=== PATIENT | female | born 1990 | race Caucasian/White ===

== ENCOUNTER → 2018-11-07 14:34 | Outpatient (CLI) | payer OTHER, SELFPAY ==
[2018-11-08 10:04] LABS: Strep Grp B PCR NEG for Grp B Strep
== END ==
PROVIDERS: Family Provider Family Medicine; PCP Family Medicine
DX: Z34.83 Encounter for supervision of other normal pregnancy, third trimester (principal)
CPT/HCPCS: 87653

== ENCOUNTER 2018-12-08 17:53 | Inpatient (IN) | payer OTHER, SELFPAY ==
[2018-12-08] MEDS: miSOPROStol 25 MCG TABLET VAG (20:13)
[2018-12-08 20:23] VITALS: BP 120/50
[2018-12-08 20:25] LABS: Add Manual Diff / Slide Review NO; Basophils Absolute Auto 100 /uL (0-100); Basophils Percent Auto 0.9 % (0-2); Eosinophils Absolute Auto 100 /uL (0-450); Eosinophils Percent Auto 0.5 % (2-4); Hematocrit 36.4 % (36-46); Hemoglobin 12.2 g/dL (12.0-16.0); Lymphocytes Absolute Auto 2500 /uL (1100-4500); Lymphocytes Percent Auto 18.6 % (25-40); Mean Corpuscular HGB Conc 33.5 % (30-36); Mean Corpuscular Hemoglobin 27.4 PG (26-34); Mean Corpuscular Volume 81.9 fL (80-100); Monocytes Absolute Auto 1000 /uL (0-900); Monocytes Percent Auto 7.8 % (3-14); Neutrophils Absolute Auto 9700 /uL (1500-7000); Neutrophils Percent Auto 72.2 % (50-75); Platelet Count 330 X10^3/uL (150-400); Red Blood Cell Count 4.44 X10^6/uL (4.0-5.2); Red Cell Distribution Width 14.6 % (11.6-14.8); White Blood Cell Count 13.4 X10^3/uL (4.5-11.0)
[2018-12-09] MEDS: miSOPROStol 25 MCG TABLET VAG (00:09)
[2018-12-09] MEDS: METFORMIN XR 500 MG TABLET 1000 MG PO (01:24)
[2018-12-09] MEDS: ZOLPIDEM 5 MG TABLET PO (01:27)
[2018-12-09] MEDS: LACTATED RINGERS 1,000 ML 100 ML IV ×2 (07:02→12:30)
[2018-12-09] MEDS: OXYTOCIN PREMIX 30 UNIT/500 ML PLAST..BAG IV (07:03)
--- NOTE | 2018-12-09 08:35 | P.HPOB_ITS ---
OB HPI Date/Time Date of admission: 12/09/18 Date Patient Seen: 12/09/18 Time Patient Seen: 08:35 History of Present Condition Chief complaint: LABOR : 3 Para: 2 Estimated Date of Delivery: 12/08/18 Estimated Gestational Age (weeks): 40 Narrative: Jeanna Sylvester is a 28 year old female three para two with a late transfer to our clinic from the [facility]. The patient is a gestational diabetic controlled on metformin. Her fastings have been below 90. Her 1 hours have been below 120. The patient is admitted at term for induction because of her diabetes Indications Indication for induction OB: medical complication History of Present care: good care, initiated at week # (11), number of visits (13) and pounds weight gain (16) Dating criteria: LMP confirmed by 2nd trimester US Ultrasounds: normal 1st trimester US and normal mid trimester US Obstetrical complications: gestational diabetes Preadmission Labs Blood type: O (+) positive -: Antibody screen: negative, Cystic fibrosis screen: unknown, GBS status: negative, HBsAG: negative, HIV: negative, HSV 1: negative, HSV 2: negative and RPR/VDLR: negative -: Chlamydia screen: detected (Negative) and Gonorrhea screen: detected (Negative) -: Rubella: immune and Varicella: immune HCT: 38 HCAB: negative PAP: Normal Sequential screen: Negative Quad screen: Normal 1 hr GTT: 139 Evaluation Evaluation Laboratory results: Laboratory Tests 12/08/18 12/08/18 19:00 19:00 WBC 13.4 H RBC 4.44 Hgb 12.2 Hct 36.4 MCV 81.9 MCH 27.4 MCHC 33.5 RDW 14.6 Plt Count 330 Neut % (Auto) 72.2 Lymph % (Auto) 18.6 L [place] % (Auto) 7.8 Eos % (Auto) 0.5 L Baso % (Auto) 0.9 Neut # (Auto) 9700 H Lymph # (Auto) 2500 [place] # (Auto) 1000 H Eos # (Auto) 100 Baso # (Auto) 100 Blood Type O Positive Antibody Screen Negative [facility] Social History Smoking Status: Never smoker Social History Smoking Status: Never smoker Meds Home Medications and Allergies Home Medications Medication Instructions Recorded Confirmed Type metformin 1,000 mg PO BID 12/08/18 12/08/18 History Allergies Allergy/AdvReac Type Severity Reaction Status Date / Time No Known Drug Allergies Allergy Unknown Verified 12/08/18 20:21 Review of Systems Review of Systems ROS Unobtainable: All systems reviewed & are unremarkable except as noted in HPI and below Exam Const General: cooperative and healthy appearing [facility] Head: normal to inspection Ears: hearing grossly normal bilaterally Nose: external nose normal Face and sinus: normal facial exam Mouth: oral mucosae normal, lip normal, tongue normal and moist mucous membranes Teeth and gingiva: dentition normal Throat: posterior oropharynx normal Eyes General: appearance normal, both eyes and all related structures Neck Neck: normal visual inspection and full ROM Chest Chest: normal inspection of the chest and normal palpation of entire chest wall Breast inspection: normal inspection of the breasts and normal inspection of the axillae Breast Palpation: normal palpation of the breasts and normal palpation of the axillae Resp Effort & Inspection: normal respiratory effort Auscultation: clear to auscultation bilaterally Cardio Palpation: normal PMI Rate: regular rate Rhythm: regular rhythm Heart Sounds: S1 normal and S2 normal GI Inspection: normal to inspection Palpation: soft and no hepatosplenomegaly Percussion: normal to percussion Auscultation: normal bowel sounds Bimanual Exam- Vagina & Uterus: uterine mobility normal OB/External & Speculum: external exam normal Manual OB Exam: dilated 4, effaced 75% and station -2 Uterus Location (Fundal Height): 42 Presentation: vertex Estimated Weight (lbs): 8 Amniotic Fluid: clear Back/Spine/Pelvis Thoracic/Lumbar Spine: thoracic and lumbar spine normal to inspection Skin General: no rashes or lesions noted Neuro General: alert, oriented x3, tone normal and moves all extremities Cognition: normal cognition Speech: speech normal Gait: normal gait Motor: muscle tone normal throughout Sensory Exam: no sensory deficits noted Extrem General: normal to inspection and normal exam except as noted Psych Appearance: grossly normal and well kempt Mental Status: mental status grossly normal Speech and Movement: speech and movement normal Objective Labs Result Diagrams: 12/08/18 19:00 Labs: Laboratory Results - last 24 hr 12/08/18 12/08/18 19:00 19:00 WBC 13.4 H RBC 4.44 Hgb 12.2 Hct 36.4 MCV 81.9 MCH 27.4 MCHC 33.5 RDW 14.6 Plt Count 330 Neut % (Auto) 72.2 Lymph % (Auto) 18.6 L [place] % (Auto) 7.8 Eos % (Auto) 0.5 L Baso % (Auto) 0.9 Neut # (Auto) 9700 H Lymph # (Auto) 2500 [place] # (Auto) 1000 H Eos # (Auto) 100 Baso # (Auto) 100 Blood Type O Positive Antibody Screen Negative Assessment and Plan Assessment and Plan Assessment and Plan narrative: Term intrauterine Gestational diabetes Induction of labor
[2018-12-09] MEDS: FENT 2MCG/ML BUPIV 0.125% EPI 200 MCG/100 ML PLAST..BAG 5 MCG EPIDURAL (11:15)
--- NOTE | 2018-12-09 13:09 | P.PCNOB_ITS ---
Labor & Delivery Delivery date: 12/09/18 Intrapartal events: None Cervical ripening method: per misoprostal protocol Induction method: per pitocin protocol Delivery augmentation: rupture of membranes Delivery monitor: external FHT and external uterine Route of delivery: L&D Laceration Description: None Anesthesia type: Epidural Complications: None Narrative: Patient is a 28-year-old three para two admitted at term because of gestational diabetes for induction of labor. Patient received misoprostol cervical ripening and then Pitocin. She had a rapid labor and spontaneous vaginal delivery of a live-born male infant with scores of nine at 1 minutes and nine at 5 minutes in good condition. Placenta delivered spontaneously. Cord had three vessels. The estimated blood loss was 250 cc. There were no cervical vaginal or perineal lacerations. Plan for aftercare: Routine
[2018-12-09] MEDS: IBUPROFEN 600 MG TABLET PO ×2 (16:22→22:56)
[2018-12-10 06:22] LABS: Hematocrit 30.7 % (36-46); Hemoglobin 10.4 g/dL (12.0-16.0)
--- NOTE | 2018-12-10 07:49 | P.DS_ITS ---
Discharge Providers Provider Date of admission: 12/08/18 17:53 Discharge Date: 12/10/18 Primary care physician: Summer Carreon MD Consults: 12/09/18 13:13 Consult to Audit Associate Routine Comment: Discharge provider: Jared Carter MD Summary Hospital Course Date Patient Seen: 12/10/18 Time Patient Seen: 07:49 Hospital Course: The patient is a 28 year three para two who was admitted for elective induction on the basis of being term and a gestational diabetic. Misoprostol cervical ripening was used. Membranes are rupture andd and Pitocin was begun. Patient had a rapid labor and spontaneous delivery of a 9 lb male with scores of nine at 1 minutes and nine at 5 minutes in good condition. Placenta delivered spontaneously. Cord had three vessels. The estimated blood loss 250 cc. There were no perineal cervical or vaginal lacerations. Post delivery the patient is done well. She remains afebrile stable vital signs she has been progressivelya;limented and ambulated. She is voiding a good volumes. She will be discharged home for follow-up in four weeks Peripartum Data Delivery Method: Natural Vaginal Laceration description: None complications: none Status at Discharge Cognitive/behavioral status at discharge: oriented Functional status at discharge: independent ambulation Overall status at discharge: patient is progressing back to baseline Time Spent with Patient Time attestation: Total time spent providing and/or coordinating discharge services: Time spent: Less than 30 minutes Objective Labs Result Diagrams: 12/10/18 06:05 Labs: Laboratory Results - last 24 hr 12/10/18 06:05 Hgb 10.4 L Hct 30.7 L Exam Narrative Exam Narrative: Fundus U minus two Lochia scant No perineal concerned Discharge Plan Discharge Plan Patient Disposition: Home Discharge Med Rec/Prescriptions Prescriptions: New Dermoplast (with menthol) 20-0.5 % Aerosol 1 spray topical Q1HR PRN (Reason: perineal pain) Qty: 1 RF: 0 oxycodone-acetaminophen 5-325 mg Tablet 2 tab PO Q4HR Qty: 10 RF: 0 ibuprofen 600 mg Tablet 600 mg PO Q6HR PRN (Reason: Pain, Mild (1-3)) Qty: 16 RF: 0 docusate sodium 250 mg Capsule 250 mg PO DAILY Qty: 14 RF: 0 Xwc-G-Knfehw Cream 1 applic topical PRN PRN (Reason: Tenderness) Qty: 1 RF: 0 ferrous gluconate 324 mg (38 mg iron) Tablet 324 mg PO DAILY Qty: 30 RF: 0 Prenatabs Rx 29 mg iron- 1 mg Tablet 1 tab PO DAILY Qty: 30 RF: 0 Discontinued metformin 1,000 mg Tablet 1,000 mg PO BID RF: 0 Follow up/Referrals: Summer Carreon MD [Primary Care Provider] - Jared Carter MD [Physician] - 1 Month Provider Discharge Instructions Diet: Diet as Tolerated Activity: up ad mauricio may shower Skin/Wound/Dressing Care Report to your healthcare provider any signs of infection, such as:: chills, fever, increased pain, unusual drainage and unusual redness Discharge Data Primary Care Provider: Summer Carreon
[2018-12-10] MEDS: PRENATAL VIT,CALC/IRON/FOLIC 1 TABLET 1 TAB PO (10:07)
[2018-12-10] MEDS: FERROUS GLUCONATE 324 MG TABLET PO (10:07)
[2018-12-10] MEDS: DOCUSATE 250 MG CAPSULE PO (10:07)
[2018-12-10 10:52] VITALS: BP 114/73; PULSE 74; RESP 16; TEMP 36.3
== END 2018-12-10 13:30 | disposition home or self-care (01) | DRG 806 ==
PROVIDERS: Family Provider Family Medicine; PCP Family Medicine
DX: O24.425 Gestational diabetes mellitus in childbirth, controlled by oral hypoglycemic drugs (principal); D62 Acute posthemorrhagic anemia; Z37.0 Single live birth; Z3A.40 40 weeks gestation of pregnancy; D64.9 Anemia, unspecified
CPT/HCPCS: 01967; 36415; 59050; 59200; 59410; 85014; 85018; 85025; 86850; 86900; 86901; G0379; J2590

== ENCOUNTER → 2020-05-24 08:40 | Outpatient (CLI) | payer OTHER, SELFPAY ==
--- NOTE | 2020-05-24 08:41 | DI.US.S_ITS ---
PROCEDURE: US OB LIMITED INDICATIONS: growth scan with LISE, possible IUGR on anatomy scan OUTSIDE/PRIOR DATING DATA: First dating scan (date and location): 05/24/2020 . Estimated date of delivery (GWEN) from first dating scan: 08/31/2020 . TECHNIQUE: Real-time scanning was performed of the fetus, with image documentation and biometric measurements. Endovaginal scanning: No COMPARISON: None available at time of interpretation. FINDINGS: General: A single living intrauterine gestation is present. Presentation: Breech. Placenta: Placental position is anterior , without previa. Amniotic fluid index: 14.1 cm, normal range is 5-24 cm. heart rate: 163 beats per minute. Maternal cervical canal: Not well seen. biometrics: Biparietal diameter: 25 weeks 4 days Head circumference: 25 weeks 6 days Abdominal circumference: 26 weeks 1 day Femur length: 25 weeks 6 days Estimated gestational age from initial scan: not applicable. Composite gestational age from present scan: 25 weeks 6 days Estimated weight and percentile: 880 g Measurement variability for biometric dating: +/- 7 days from 14 weeks to 15 weeks 6 days gestation, +/- 10 days from 16 weeks to 21 weeks 6 days gestation, +/- 2 weeks from 22 weeks to 27 weeks 6 days gestation, +/- 3 weeks for 28 weeks gestation or later. weight reference: 4500 g or EFW >90/95% is considered macrosomia or large for gestational age. EFW <10% is small for gestational age. EFW 5% or less is considered intra-uterine growth restriction. Other: Limited anatomic survey performed. IMPRESSION: 1. Single living IUP identified with mean composite gestational age of 25 weeks 6 days corresponding to ultrasound GWEN of 08/31/2020. Dictated by: Pedro Luis Pop [facility] Interpreted: Vanita Fitzgerald MD on 05/24/2020 at 9:34 Approved by: Vanita Fitzgerald M.D. on 05/24/2020 at 13:31
== END ==
PROVIDERS: Family Provider Family Medicine; PCP Family Medicine; Referring Provider Family Medicine; Visit Provider Family Medicine
DX: Z34.82 Encounter for supervision of other normal pregnancy, second trimester (principal); Z3A.25 25 weeks gestation of pregnancy
CPT/HCPCS: 76815

== ENCOUNTER → 2020-07-08 10:32 | Outpatient (CLI) | payer OTHER, SELFPAY ==
[2020-07-08 12:17] LABS: Thyroid Stimulating Hormone 0.323 uIU/mL (0.47-4.68)
[2020-07-08 18:15] LABS: Free T3, Triiodothyronine Free 2.51 pg/mL (2.77-5.27)
== END ==
PROVIDERS: Family Provider Family Medicine; PCP Family Medicine; Referring Provider Family Medicine; Visit Provider Family Medicine
DX: E05.90 Thyrotoxicosis, unspecified without thyrotoxic crisis or storm (principal); E03.9 Hypothyroidism, unspecified
CPT/HCPCS: 36415; 84439; 84443; 84481

== ENCOUNTER → 2020-08-05 09:53 | Outpatient (CLI) | payer OTHER, SELFPAY ==
[2020-08-06 08:06] LABS: Strep Grp B PCR NEG for Grp B Strep
== END ==
PROVIDERS: Family Provider Family Medicine; PCP Family Medicine; Visit Provider Family Medicine
DX: Z34.90 Encounter for supervision of normal pregnancy, unspecified, unspecified trimester (principal); Z3A.36 36 weeks gestation of pregnancy
CPT/HCPCS: 87653

== ENCOUNTER → 2020-08-11 14:28 | Outpatient (CLI) | payer OTHER, SELFPAY ==
--- NOTE | 2020-08-11 14:29 | DI.US.S_ITS ---
PROCEDURE: US OB LIMITED INDICATIONS: GROWTH OUTSIDE/PRIOR DATING DATA: Last menstrual period (LMP): Unknown . LMP-based estimated date of delivery (GWEN): Unknown . First dating scan (date and location): 05/24/20 . Estimated date of delivery (GWEN) from first dating scan: 08/31/20 . TECHNIQUE: Real-time scanning was performed of the fetus, with image documentation. Endovaginal scanning: Not performed COMPARISON: [facility], OB LIMITED, 05/24/2020, 8:57. FINDINGS: A single living intrauterine gestation is present. Presentation: Vertex. Placenta: Placental position is anterior , without previa. Amniotic fluid index: 6.4 cm, normal range is 5-24 cm. Largest pocket 2.6 cm. heart rate: 116 beats per minute. Maternal cervical canal: Not well seen. Biparietal diameter measures 8.6 cm, 34 weeks 4 days Head circumference measures 32.2 cm, 36 weeks 3 days Abdominal circumference measures 33.0 cm, 37 weeks 0 days Femur length measures 7.0 cm, 35 weeks 6 days. Estimated gestational age from initial scan: 37 weeks 1 day Composite gestational age by today's measurements 36 weeks 0 days Estimated weight 2905 g, 35th percentile . IMPRESSION: Single living intrauterine fetus demonstrating expected interval growth. LISE 6.4 cm. Dictated by: Chaitanya Capone M.D. on 08/11/2020 at 17:45 Approved by: Chaitanya Capone M.D. on 08/11/2020 at 17:48
== END ==
PROVIDERS: Family Provider Family Medicine; PCP Family Medicine; Referring Provider Family Medicine; Visit Provider Family Medicine
DX: Z3A.36 36 weeks gestation of pregnancy; O36.5930 Maternal care for other known or suspected poor fetal growth, third trimester, not applicable or unspecified
CPT/HCPCS: 76815

== ENCOUNTER 2020-08-17 16:51 | Outpatient (CLI) | payer OTHER, SELFPAY | END 2020-08-17 18:30 | disposition home or self-care (01) | LOC: OB 08-18 06:54 | PROVIDERS: Family Provider Family Medicine; PCP Family Medicine; Referring Provider Family Medicine; Visit Provider Family Medicine | DX: O36.8130 Decreased fetal movements, third trimester, not applicable or unspecified (principal); Z3A.38 38 weeks gestation of pregnancy | CPT/HCPCS: 59025; 84112; G0378; G0379 ==

== ENCOUNTER 2020-08-31 07:05 | Inpatient (IN) | payer OTHER, SELFPAY ==
[2020-08-31 08:14] LABS: Add Manual Diff / Slide Review NO; Basophils Absolute Auto 0 /uL (0-100); Basophils Percent Auto 0.3 % (0-2); Eosinophils Absolute Auto 100 /uL (0-450); Eosinophils Percent Auto 0.8 % (2-4); Hematocrit 35.8 % (36-46); Hemoglobin 11.9 g/dL (12.0-16.0); Lymphocytes Absolute Auto 2100 /uL (1100-4500); Lymphocytes Percent Auto 17.9 % (25-40); Mean Corpuscular HGB Conc 33.3 % (30-36); Mean Corpuscular Hemoglobin 27.6 PG (26-34); Mean Corpuscular Volume 82.8 fL (80-100); Monocytes Absolute Auto 700 /uL (0-900); Neutrophils Absolute Auto 8800 /uL (1500-7000); Platelet Count 294 X10^3/uL (150-400); Red Blood Cell Count 4.32 X10^6/uL (4.0-5.2); Red Cell Distribution Width 14.5 % (11.6-14.8); White Blood Cell Count 11.7 X10^3/uL (4.5-11.0)
[2020-08-31] MEDS: LACTATED RINGERS 1,000 ML 100 ML IV (10:29)
[2020-08-31] MEDS: OXYTOCIN PREMIX 30 UNIT/500 ML PLAST..BAG 200 UNIT IV (10:29)
[2020-08-31 10:50] LABS: COVID19 - ADMIT (NP swab/PCR) Negative (Negative)
--- NOTE | 2020-08-31 12:56 | PM.OBHP.1 ---
OB HPI Date/Time Date of admission: 08/31/20 Date Patient Seen: 08/31/20 Time Patient Seen: 08:00 History of Present Condition Chief complaint: OBSERVATION OF LABOR : 4 Para: 3 Estimated Date of Delivery: 08/31/20 Estimated Gestational Age (weeks): 40w0d Narrative: Jeanna Sylvester is a 30 year old at 40w0d here for elective IOL. Pt is not feeling any contractions, and denies LOF or vaginal bleeding. She is feeling her baby move regularly. Indications Indication for induction OB: other (elective) History of Present care: good care, initiated at week # (14) and pounds weight gain (5) Dating criteria: based on 1st trimester US only Ultrasounds: normal 1st trimester US and normal mid trimester US Obstetrical complications: none Medical complications: none Narrative: Had COVID 01/2020 Questionable SGA, however with MFM referral recommended changing due date and then fetus appropriate size Preadmission Labs Blood type: O (+) positive -: Antibody screen: negative, GBS status: negative, HBsAG: negative, HIV: negative and RPR/VDLR: negative -: Chlamydia screen: not detected and Gonorrhea screen: not detected -: Rubella: immune HCT: 30.7 Sequential screen: Negative Urine: Negative 1 hr GTT: 126 Prior (ies) History: 12/16/14 - at 40w5d, [id number] female 07/07/16 - at 40w5d, 8lb1oz female 12/09/18 - at 40w, 9lb male Evaluation Evaluation Baseline heart rate: 130 Variability: Moderate (11-25) monitor accelerations: Present Monitor Decelerations: Absent Uterine Contraction Intensity: Mild Status: Category l Laboratory results: Laboratory Tests 08/31/20 08/31/20 08/31/20 07:45 07:45 07:45 WBC 11.7 H RBC 4.32 Hgb 11.9 L Hct 35.8 L MCV 82.8 MCH 27.6 MCHC 33.3 RDW 14.5 Plt Count 294 Neut % (Auto) 75.0 Lymph % (Auto) 17.9 L [place] % (Auto) 6.0 Eos % (Auto) 0.8 L Baso % (Auto) 0.3 Neut # (Auto) 8800 H Lymph # (Auto) 2100 [place] # (Auto) 700 Eos # (Auto) 100 Baso # (Auto) 0 SARS-CoV-2 (PCR) Negative Blood Type O Positive Antibody Screen Negative PFSH Medical History 40 weeks gestation of Alopecia areata (~2009) COVID-19 affecting in first trimester (~01/28/20) Elective delivery before 39 weeks of gestation Multigravida in third trimester Multinodular non-toxic goiter (~2009) Obesity examination following vaginal delivery Spontaneous vaginal delivery Vaginal bleeding Vitamin D deficiency (~02/2020) Surgical History (Updated 05/12/20 @ 14:27 by Mariola Sanchez RN) [place] teeth extracted (~2015) Family History (Updated 05/12/20 @ 14:36 by Mariola Sanchez RN) Mother Breast cancer Father Heart disease Colon cancer Grandmother No problems noted. Grandfather Diabetes mellitus Hypertension Myocardial infarction Grandmother No problems noted. Grandfather No problems noted. Sister Anesthesia complication Social History marital status: number of children: 3 household members: spouse and children lives independently: Yes caregiver/support person: No housing: house pets and animals: No education level: college (Some college.) occupational status: unemployed ([employer]. ) current occupational exposures/hazards: No david/congregational: [employer]ab[employer] special david needs: No seatbelt use: always do you feel safe at home: Yes Smoking Status: Never smoker second hand exposure: No alcohol intake: never substance use type: does not use during the past year weight has: decreased > 10 lbs (Had COVID 01/2020. ) well-balanced diet: daily or most days daily servings fruits/ve-4 caffeine: No Type(s) of exercise: normal ROM and activity (Busy with 3 kids, not dedicated exercise. ) frequency: does not exercise Meds Home Medications and Allergies Home Medications Medication Instructions Recorded Confirmed Type vit,[id number] 1 tab PO DAILY #30 tab 12/10/18 01/08/19 Rx [Prenatabs Rx] ergocalciferol (vitamin D2) 1,250 1,250 mcg PO QWEEK 05/12/20 05/12/20 History mcg (50,000 unit) capsule Allergies Allergy/AdvReac Type Severity Reaction Status Date / Time No Known Drug Allergies Allergy Unknown Verified 05/12/20 14:04 Exam Const General: cooperative, healthy appearing and comfortable Orientation: alert, awake and oriented x3 Resp Effort & Inspection: normal respiratory effort Auscultation: clear to auscultation bilaterally Cardio Rate: regular rate Rhythm: regular rhythm Heart Sounds: S1 normal, S2 normal and no murmurs GI Inspection: non-distended Palpation: soft and No tender Other: gravid Presentation: vertex Extrem General: no clubbing, cyanosis or edema Objective Labs Result Diagrams: 08/31/20 07:45 Labs: Laboratory Results - last 24 hr 08/31/20 08/31/20 08/31/20 07:45 07:45 07:45 WBC 11.7 H RBC 4.32 Hgb 11.9 L Hct 35.8 L MCV 82.8 MCH 27.6 MCHC 33.3 RDW 14.5 Plt Count 294 Neut % (Auto) 75.0 Lymph % (Auto) 17.9 L [place] % (Auto) 6.0 Eos % (Auto) 0.8 L Baso % (Auto) 0.3 Neut # (Auto) 8800 H Lymph # (Auto) 2100 [place] # (Auto) 700 Eos # (Auto) 100 Baso # (Auto) 0 SARS-CoV-2 (PCR) Negative Blood Type O Positive Antibody Screen Negative Assessment and Plan Assessment and Plan Assessment and Plan narrative: Pt is a 30 year old at 40w0d here for elective IOL. GBS negative, Rh positive. - Expectant management, anticipate - FHT reassuring - Start pitocin, titrate as tolerated. Cervical exam deferred as pt has not been feeling contractions at home. - Epidural for pain control when desired - GBS negative, no prophylaxis indicated
--- NOTE | 2020-08-31 14:02 | PM.OBPNLAB ---
Date/Time Date Patient Seen: 08/31/20 Time Patient Seen: 13:00 Pain Control Pain control: tolerating well Pelvic Exam Dilation (cm): 4 Effacement (%): 90 station: -1 Amniotic membrane status: Ruptured Comments: After informed consent, AROM performed with production of clear fluid Contractions Pitocin rate (mU/min): 9 Contraction frequency (min): 3 Contraction intensity: Mild Status status: Category l Heart Rate Baseline: 130 Monitor Accelerations: Present Monitor Decelerations: Absent Monitor Variability: Moderate Assessment and Plan Comments: Pt is a 30 year old at 40w0d here for elective IOL. AROM performed with clear fluid present. GBS negative, Rh positive. - Expectant management, anticipate - FHT reassuring - Continue pitocin, titrate as tolerated. - Epidural for pain control when desired - GBS negative, no prophylaxis indicated
--- NOTE | 2020-08-31 14:45 | P.PCN_ITS ---
Regional Block Pre-procedure Procedure: Continuous Lumbar Epidural for L&D Attending OB provider: Summer Carreon PMH/ROS narrative: term labor, no complications. BMI 42 Hx: No personal or family history of anesthesia problems. ASA Class: III Labs: Hct 35.8 % (36-46) L 08/31/20 07:45 Plt Count 294 X10^3/uL (150-400) 08/31/20 07:45 Medications: Current Medications Generic Name Dose Route Start Last Admin Trade Name Freq PRN Reason Stop Dose Admin Calcium Carbonate 1,000 mg 08/31/20 07:26 Calcium Carbonate 500 Mg Tab PO Q2HR PRN Dyspepsia Carboprost Tromethamine 250 mcg 08/31/20 07:26 Carboprost 250 Mcg/Ml Ampul IM Q90M PRN Bleeding Fentanyl 50 mcg 08/31/20 07:26 Fentanyl 100 Mcg/2 Ml Inj IV Q1H PRN Pain, Moderate (4-6) Lactated Ringer's 1,000 mls @ 100 mls/hr 08/31/20 07:30 08/31/20 10:29 Lactated Ringers IV 100 mls/hr CONT FLOWER Administration Oxytocin/Lactated Ringer's 30 unit in 500 mls @ 200 mls/hr 08/31/20 07:26 08/31/20 10:29 Oxytocin Premix IV 200 mls/hr CONT PRN Administration Bleeding Protocol Oxytocin/Lactated Ringer's 30 unit in 500 mls @ 3 mls/hr 08/31/20 07:30 Oxytocin Premix IV TITRATE FLOWER Protocol 3 MILLIUNIT/MIN Tranexamic Acid 1,000 mg/ 100 mls @ 200 mls/hr 08/31/20 07:26 Sodium Chloride IV NOW PRN Bleeding Methylergonovine Maleate 0.2 mg 08/31/20 07:26 Methylergonovine 0.2 Mg/Ml Vial IM NOW PRN Bleeding Methylergonovine Maleate 0.2 mg 08/31/20 07:26 Methylergonovine 0.2 Mg Tablet PO Q6HR PRN Heavy Bleeding Misoprostol 800 mcg 08/31/20 07:26 Misoprostol 200 Mcg Tablet AZ NOW PRN Bleeding Misoprostol 1,000 mcg 08/31/20 07:26 Misoprostol 200 Mcg Tablet [place] NOW PRN Bleeding Misoprostol 400 mcg 08/31/20 07:26 Misoprostol 200 Mcg Tablet SL NOW PRN Bleeding Naloxone HCl 0.2 mg 08/31/20 07:26 Naloxone 0.4 Mg/Ml Vial IV Q2MIN PRN Opiate Reversal Ondansetron HCl 4 mg 08/31/20 07:26 Ondansetron 4 Mg/2 Ml Inj IV Q4HR PRN Nausea And Vomiting Oxytocin 10 unit 08/31/20 07:26 Oxytocin 10 Unit/Ml Vial IM NOW PRN Bleeding Allergies: Allergies Allergy/AdvReac Type Severity Reaction Status Date / Time No Known Drug Allergies Allergy Unknown Verified 05/12/20 14:04 Procedure Insertion date: 08/31/20 Insertion time: 14:20 Prep/Local: betadine x3 Interspace: L3-4 Patient position: sitting Needle: 18 gauge Nudipay Mobile Payment (CSE: 27g Pencan through [employer], clear CSF, 1mL 0.25% bupiv) Loss of resistance with: saline FAZAL at (cm): 8 Catheter placed at SKIN (cm): 14 Catheter in SPACE (cm): 6 Insertion: No CSF, No Blood, No Paresthesia with insertion, No Paresthesia with injection and No Test dose reaction Initial Medications TEST DOSE: 1.5% lidocaine with epinephrine 1:200k (mL): 3 BOLUS DOSE time: 14:33 BOLUS DOSE (mL): 3 BOLUS DOSE med: other (infusate) Infusion INFUSION: 0.125% bupivacaine and with fentanyl 2 mcg/mL Initial rate (mL/hr): 6 Subsequent interventions: Post-procedure Anesthesia time START: 14:13 Anesthesia time END: 16:25
--- NOTE | 2020-08-31 17:18 | PM.OBPRVD ---
Labor & Delivery Delivery date: 08/31/20 Intrapartal Events: None Cervical ripening method: none Induction method: per pitocin protocol Delivery augmentation: rupture of membranes Delivery monitor: external FHT Route of delivery: Episiotomy description: None L&D Laceration Description: None Estimated blood loss (mL): 100 Anesthesia Type: Epidural Complications: None Narrative: at 40w0d presented for elective IOL and was admitted to Labor and Delivery. She was started on pitocin, which was titrated up appropriately. The patient progressed through the 1st stage over 3.5 hours. Pain was controlled with an epidural. AROM was performed with production of clear fluid. The patient progressed through the 2nd stage over 10 minutes and delivered a viable male infant with APGARs 8/9 at 16:22 via without complications. The cord was cut and clamped after it stopped pulsating The perineum and vagina were inspected with no lacerations. PREPROCEDURE DIAGNOSIS: Intrauterine at 40w0d GBS negative RH positive POSTPROCEDURE DIAGNOSIS: Intrauterine at 40w0d, delivered Same as preprocedure Baby 1: Infant gender: Male Presentation: vertex Position: Right Occiput Anterior Placenta delivery description: Spontaneous Cord Vessel Description: 3 Vessels and Nuchal Cord (reduced at perineum) score (1 min): 8 score (5 min): 9 weight: 7 lb 14 oz Plan for aftercare: Routine care
[2020-08-31 18:40] VITALS: BP 117/75
[2020-08-31] MEDS: IBUPROFEN 600 MG TABLET PO (19:50)
[2020-08-31] MEDS: ACETAMINOPHEN 325 MG TABLET 650 MG PO (19:51)
--- NOTE | 2020-09-01 09:28 | P.DS_ITS ---
Discharge Providers Provider Date of admission: 08/31/20 07:05 Discharge Date: 09/01/20 Primary care physician: Summer Carreon MD Consults: 09/01/20 17:17 Consult to Telephone Supervisor Routine Comment: Discharge provider: Summer Carreon MD Summary Hospital Course Date Patient Seen: 09/01/20 Time Patient Seen: 08:30 Diagnoses: 40w0d gestation Rh positive GBS negative Hospital Course: The patient presented for elective induction of labor at 40 weeks 0 days. She received Pitocin for induction. An epidural was placed for pain control. AROM was performed with production of clear fluid. Patient progressed to complete and had a spontaneous vaginal delivery of a viable baby boy at 4:22 p.m. on 08/31. There are no lacerations. The patient tolerated delivery well. , there were no complications. At the time of discharge she was voiding, ambulating, and passing flatus without difficulty. Her lochia was decreasing appropriately. Her pain was well controlled. She is breast-feeding with good latch. She will follow up in clinic in 6 months for check. Her is plan on vasectomy for contraception. Peripartum Data Infant Delivery Method: Natural Vaginal Laceration Description: None Episiotomy description: None Procedures: Spontaneous vaginal delivery complications: none 1: Gender: Male Disposition of : home Discharge Diagnosis (1) Spontaneous vaginal delivery: Status: Acute Status at Discharge Cognitive/behavioral status at discharge: oriented Functional status at discharge: independent ambulation Overall status at discharge: patient is progressing back to baseline Time Spent with Patient Time attestation: Total time spent providing and/or coordinating discharge services: Objective Labs Result Diagrams: 08/31/20 07:45 Labs: Laboratory Results - last 24 hr 08/31/20 07:45 SARS-CoV-2 (PCR) Negative Exam Narrative Exam Narrative: Gen: NAD, sitting comfortably in bed, appears well CV: RRR, no murmurs Resp: clear to auscultation bilaterally Abd: soft, appropriately tender, fundus firm and below the umbilicus, nondistended Ext: no edema Discharge Plan Discharge Plan Patient Disposition: Home Discharge orders & Medications Prescriptions: Continued ergocalciferol (vitamin D2) 1,250 mcg (50,000 unit) capsule 1,250 mcg PO QWEEK RF: 0 Prenatabs Rx 29 mg iron- 1 mg Tablet 1 tab PO DAILY Qty: 30 RF: 0 Follow up/Referrals: Summer Carreon MD [Primary Care Provider] - 6 Weeks Diet/Activity/Treatments Diet: Diet as Tolerated and Regular Skin/Wound/Dressing Care Report to your healthcare provider any signs of infection, such as:: chills, fever, increased pain and unusual drainage Visit Report/Discharge Packet Instructions: DI for Labor and Delivery, Vaginal Visit Report Forms: Patient Portal/API, Stroke Signs & Symptoms Discharge Data Primary Care Provider: Summer Carreon
[2020-09-01 09:56] VITALS: BP 117/75; PULSE 92; RESP 18; TEMP 36.4
[2020-09-01] MEDS: ACETAMINOPHEN 325 MG TABLET 650 MG PO (10:48)
[2020-09-01] MEDS: PRENATAL VIT,CALC/IRON/FOLIC 1 TABLET 1 TAB PO (10:48)
[2020-09-01] MEDS: DOCUSATE 100 MG CAPSULE PO (10:48)
[2020-09-01] MEDS: LANOLIN OINT 7 GM 1 APPLIC TOP (10:49)
[2020-09-01] MEDS: IBUPROFEN 600 MG TABLET PO (10:49)
== END 2020-09-01 13:30 | disposition home or self-care (01) | DRG 807 ==
PROVIDERS: Admitting Provider Family Medicine; Family Provider Family Medicine; PCP Family Medicine; Referring Provider Family Medicine; Visit Provider Family Medicine
DX: O69.81X0 Labor and delivery complicated by cord around neck, without compression, not applicable or unspecified (principal); Z37.0 Single live birth; Z3A.40 40 weeks gestation of pregnancy
CPT/HCPCS: 01967; 36415; 59050; 59410; 85025; 86850; 86900; 86901; 87635; C9803; G0379; J2590

== ENCOUNTER 2022-06-27 18:29 | Emergency (ER) | payer OTHER, SELFPAY ==
[2022-06-27 18:42] VITALS: BP 138/82; PULSE 69; RESP 20; TEMP 36.5; O2SAT 99; BMI 44.2
--- NOTE | 2022-06-27 18:49 | DI.RAD.S_ITS ---
PROCEDURE: XR CHEST 1V INDICATIONS: chest pain TECHNIQUE: One view of the chest was acquired. COMPARISON: None. FINDINGS: Surgical changes and devices: None. Lungs and pleura: Lungs are clear. No pleural effusions or pneumothorax. Mediastinum: Mediastinal contours appear normal. Heart size is normal. Bones and chest wall: No suspicious bony lesions. Overlying soft tissues appear unremarkable. IMPRESSION: Unremarkable portable chest. Dictated by: Joss Werner M.D. on 06/27/2022 at 18:21 Approved by: Joss Werner M.D. on 06/27/2022 at 18:22
[2022-06-27 19:28] LABS: Add Manual Diff / Slide Review NO; Basophils Absolute Auto 100 /uL (0-100); Basophils Percent Auto 0.7 % (0-2); Eosinophils Absolute Auto 200 /uL (0-450); Eosinophils Percent Auto 1.5 % (2-4); Hematocrit 38.4 % (36-46); Hemoglobin 13.1 g/dL (12.0-16.0); Lymphocytes Absolute Auto 3700 /uL (1100-4500); Mean Corpuscular Hemoglobin 28.1 PG (26-34); Mean Corpuscular Volume 82.4 fL (80-100); Monocytes Absolute Auto 700 /uL (0-900); Monocytes Percent Auto 6.1 % (3-14); Neutrophils Absolute Auto 7300 /uL (1500-7000); Neutrophils Percent Auto 60.7 % (50-75); Platelet Count 316 X10^3/uL (150-400); Prothrombin Time 11.8 SECONDS (10.1-12.7); Red Blood Cell Count 4.66 X10^6/uL (4.0-5.2); Red Cell Distribution Width 13.2 % (11.6-14.8)
[2022-06-27 19:30] LABS: PTT Partial Thromboplastin Tim 34 SECONDS (26-36)
[2022-06-27 19:32] LABS: Alanine Aminotransferase 48 IU/L (<35); Albumin 4.1 g/dL (3.5-5.0); Albumin Globulin Ratio 1.2 (1.0-2.8); Alkaline Phosphatase 90 U/L (38-126); Aspartate Aminotransferase 32 IU/L (14-36); BUN Creatinine Ratio 26.1 (6-22); Bilirubin Total 0.3 mg/dL (0.2-1.3); Blood Urea Nitrogen 12 mg/dL (7-17); Calcium 8.9 mg/dL (8.4-10.2); Carbon Dioxide 26 mmol/L (22-32); Chloride 102 mmol/L (98-107); Creatine Kinase 98 U/L (30-135); Estimated Glomerular Filt Rate > 60 mL/min (>60); Globulin 3.5 g/dL (1.7-4.1); Glucose 100 mg/dL (70-100); HEMOLYSIS < 15 (0-50); Lipase 38 U/L (23-300); Magnesium 1.9 mg/dL (1.6-2.3); Sodium 135 mmol/L (137-145); Total Protein 7.6 g/dL (6.3-8.2)
[2022-06-27 19:43] LABS: Troponin I < 0.012 ng/mL (0.01-0.034)
[2022-06-27 19:44] VITALS: PULSE 64; RESP 19; O2SAT 98
[2022-06-27 19:53] LABS: D Dimer 257 ng/ml (<500)
[2022-06-27 20:00] VITALS: PULSE 66; RESP 21; O2SAT 98
--- NOTE | 2022-06-27 20:03 | ED_ITS ---
HPI - Chest Pain General Chief Complaint: Chest Pain Stated Complaint: PAIN IN CHEST Time Seen by Provider: 06/27/22 19:33 Source: patient Mode of arrival: Ambulatory Limitations: no limitations History of Present Illness HPI narrative: 32-year-old female nonsmoker without chronic medical history presents with her significant other than chief complaint of sharp and stabbing central chest pain that on occasion radiates to her back. She states it is worse when she lays flat and takes a deep breath. It also worsens with use of her right upper extremity. She is not dizzy nor weak or lightheaded. She denies any shortness of breath, cough or hemoptysis. She is had no nausea, vomiting or diarrhea. She denies any recent travel, injury, history of clot or known cancer. Related Data Home Medications Medication Instructions Recorded Confirmed ergocalciferol (vitamin D2) 1,250 1,250 mcg PO QWEEK 05/12/20 08/31/20 mcg (50,000 unit) capsule Previous Rx's Medication Instructions Recorded vitamin 1 tab PO DAILY #30 tabs 12/10/18 no.76-iron,carbonyl 29 mg iron-folic acid 1 mg tablet (Prenatabs Rx) Allergies Allergy/AdvReac Type Severity Reaction Status Date / Time No Known Drug Allergies Allergy Unknown Verified 06/27/22 18:46 Review of Systems Review of Systems Narrative: GENERAL: Denies chills, fatigue, malaise, fever, sweats. HEENT: Denies sinus pain, ear pain, sore throat, difficulty swallowing, dizziness. RESPIRATORY: Denies dyspnea, cough, wheezing, hemoptysis, sputum. CARDIOVASCULAR: See HPI GASTROINTESTINAL: Denies nausea, vomiting, abdominal pain, diarrhea, constipation, melena. : Denies dysuria, frequency, incontinence, hematuria, urinary retention. MUSCULOSKELETAL: denies weakness, joint pain, or bony pain SKIN: Denies rash, skin lesions, or other NEUROLOGIC: Denies weakness, headache, numbness, change in speech, confusion, seizures, incoordination. PSYCHIATRIC: No concerning psychosocial issues. 12 point review of systems is negative except for those stated above Patient History Medical History 40 weeks gestation of Alopecia areata (~2009) COVID-19 affecting in first trimester (~01/28/20) Elective delivery before 39 weeks of gestation Multigravida in third trimester Multinodular non-toxic goiter (~2009) Obesity examination following vaginal delivery Spontaneous vaginal delivery Vaginal bleeding Vitamin D deficiency (~02/2020) Surgical History [place] teeth extracted (~2015) Family History Mother Breast cancer Father Heart disease Colon cancer Grandmother No problems noted. Grandfather Diabetes mellitus Hypertension Myocardial infarction Grandmother No problems noted. Grandfather No problems noted. Sister Anesthesia complication Social History marital status: number of children: 3 household members: spouse and children lives independently: Yes caregiver/support person: No housing: house pets and animals: No education level: college (Some college.) occupational status: unemployed ([employer]. ) current occupational exposures/hazards: No david/quaker: Church special david needs: No seatbelt use: always do you feel safe at home: Yes Smoking Status: Never smoker second hand exposure: No alcohol intake: never substance use type: does not use during the past year weight has: decreased > 10 lbs (Had COVID 01/2020. ) well-balanced diet: daily or most days daily servings fruits/ve-4 caffeine: No Type(s) of exercise: normal ROM and activity (Busy with 3 kids, not dedicated exercise. ) frequency: does not exercise Smoking Status: Never smoker alcohol intake frequency: 0-2 drinks per day Substance Use Type: does not use Exam Narrative Exam Narrative: GENERAL: [32] year old patient appears stated age. Well-developed patient, in mild distress. HEAD: Atraumatic. Normocephalic. EYES: Pupils equal round and reactive. Extraocular motions intact. No scleral icterus. No injection or drainage. ENT: Nose without bleeding, purulent drainage. Throat without erythema, tonsillar hypertrophy or exudate. Airway patent. NECK: Trachea midline. Non tender CARDIOVASCULAR: Regular rate and rhythm without murmurs, gallops, or rubs. RESPIRATORY: Clear to auscultation. Breath sounds equal bilaterally. No wheezes, rales, or rhonchi. GASTROINTESTINAL: Abdomen soft, non-tender, nondistended. EXTREMITIES: No edema or joint tenderness. BACK: Nontender without deformity or crepitance. No flank tenderness. NEURO: AOx3. SKIN: No rash or erythema of visible areas Initial Vital Signs Initial Vital Signs: Vital Signs Temperature 97.7 F 06/27/22 18:42 Pulse Rate 69 06/27/22 18:42 Respiratory Rate 20 06/27/22 18:42 Blood Pressure 138/82 06/27/22 18:42 Pulse Oximetry 99 06/27/22 18:42 Oxygen Delivery Method Room Air 06/27/22 18:42 Scores HEART Score Heart Score history: Slightly Suspicious Heart Score EKG: Normal Heart Score Age: < 45 years old Heart Score risk factors: 1-2 risk factors Heart Score troponin: < or = to normal limit Heart Score Total: 1 Course Orders Ordered: ED Orders 06/27/22 23:25 Trop I [Troponin I] Stat Discontinued Medications Aspirin (Aspirin 81 Mg Chew Tab) 324 mg PO NOW ONE Stop: 06/27/22 18:50 Last Admin: 06/27/22 22:56 Dose: Not Given Documented By: SHERRY Vital Signs Vital signs: Vital Signs - 8 hr 06/27/22 21:30 06/28/22 00:46 Pulse Rate 67 65 Respiratory Rate 24 16 Blood Pressure 119/58 L Pulse Oximetry 99 99 Oxygen Delivery Method Room Air MDM - Chest Pain Medical Records Data Medical records narrative: [32] year old patient presents with Multiple etiologies for patient's symptoms considered including, but not limited to: [Cardiac ischemia, pericarditis, pulmonary embolism, pneumonia,] Prior Charts reviewed in our EMR Primary Historian: patient Labs reviewed and interpreted by myself: Minimal leukocytosis, no left shift, no signs of anemia. D-dimer below cutoff to pursue with CT angiogram. Troponin x2 negative, electrolytes and kidney function without abnormality Imaging reviewed: Chest x-ray with no acute process Patient's symptoms improved over duration of stay with above-stated therapies. Patient with no exertional symptoms, no exercise intolerance, low heart score, nonischemic EKG and troponin negative x2. Heart score is low. Pulmonary embolism considered but thought unlikely given low D-dimer. Pericarditis considered but thought unlikely given lack of inflammatory markers or classic findings on EKG. Findings and discharge diagnosis discussed with patient/family followed by verbalization of understanding Return precautions discussed with patient/family whom verbalize understanding of diagnosis and plan Lab Data 06/27/22 19:07 06/27/22 19:07 Labs: Lab Results 06/27/22 06/27/22 06/27/22 Range/Units 19:07 19:07 19:07 WBC 12.0 H (4.5-11.0) X10^3/uL RBC 4.66 (4.0-5.2) X10^6/uL Hgb 13.1 (12.0-16.0) g/dL Hct 38.4 (36-46) % MCV 82.4 (80-100) fL MCH 28.1 (26-34) PG MCHC 34.0 (30-36) % RDW 13.2 (11.6-14.8) % Plt Count 316 (150-400) X10^3/uL Neut % (Auto) 60.7 (50-75) % Lymph % (Auto) 31.0 (25-40) % [place] % (Auto) 6.1 (3-14) % Eos % (Auto) 1.5 L (2-4) % Baso % (Auto) 0.7 (0-2) % Neut # (Auto) 7300 H (4708-6382) /uL Lymph # (Auto) 3700 (5776-9012) /uL [place] # (Auto) 700 (0-900) /uL Eos # (Auto) 200 (0-450) /uL Baso # (Auto) 100 (0-100) /uL ESR (0-20) MM/HR PT 11.8 (10.1-12.7) SECONDS INR 1.0 (0.9-1.3) APTT 34 (26-36) SECONDS D-Dimer (<500) ng/ml Sodium 135 L (137-145) mmol/L Potassium 4.0 (3.4-5.1) mmol/L Chloride 102 (98-107) mmol/L Carbon Dioxide 26 (22-32) mmol/L BUN 12 (7-17) mg/dL Creatinine 0.46 L (0.52-1.04) mg/dL Estimated GFR > 60 (>60) mL/min BUN/Creatinine Ratio 26.1 H (6-22) Glucose 100 (70-100) mg/dL Calcium 8.9 (8.4-10.2) mg/dL Magnesium 1.9 (1.6-2.3) mg/dL Total Bilirubin 0.3 (0.2-1.3) mg/dL AST 32 (14-36) IU/L ALT 48 H (<35) IU/L Alkaline Phosphatase 90 (38-126) U/L Total Creatine Kinase 98 (30-135) U/L CK-MB (CK-2) TNP CK-MB (CK-2) Rel Index TNP Troponin I < 0.012 (0.01-0.034) ng/mL C-Reactive Protein (<1.0) mg/dL Total Protein 7.6 (6.3-8.2) g/dL Albumin 4.1 (3.5-5.0) g/dL Globulin 3.5 (1.7-4.1) g/dL Albumin/Globulin Ratio 1.2 (1.0-2.8) Lipase 38 (23-300) U/L 06/27/22 06/27/22 06/27/22 Range/Units 19:07 19:07 19:07 WBC (4.5-11.0) X10^3/uL RBC (4.0-5.2) X10^6/uL Hgb (12.0-16.0) g/dL Hct (36-46) % MCV (80-100) fL MCH (26-34) PG MCHC (30-36) % RDW (11.6-14.8) % Plt Count (150-400) X10^3/uL Neut % (Auto) (50-75) % Lymph % (Auto) (25-40) % [place] % (Auto) (3-14) % Eos % (Auto) (2-4) % Baso % (Auto) (0-2) % Neut # (Auto) (3723-0918) /uL Lymph # (Auto) (4946-6321) /uL [place] # (Auto) (0-900) /uL Eos # (Auto) (0-450) /uL Baso # (Auto) (0-100) /uL ESR 14 (0-20) MM/HR PT (10.1-12.7) SECONDS INR (0.9-1.3) APTT (26-36) SECONDS D-Dimer 257 (<500) ng/ml Sodium (137-145) mmol/L Potassium (3.4-5.1) mmol/L Chloride (98-107) mmol/L Carbon Dioxide (22-32) mmol/L BUN (7-17) mg/dL Creatinine (0.52-1.04) mg/dL Estimated GFR (>60) mL/min BUN/Creatinine Ratio (6-22) Glucose (70-100) mg/dL Calcium (8.4-10.2) mg/dL Magnesium (1.6-2.3) mg/dL Total Bilirubin (0.2-1.3) mg/dL AST (14-36) IU/L ALT (<35) IU/L Alkaline Phosphatase (38-126) U/L Total Creatine Kinase (30-135) U/L CK-MB (CK-2) CK-MB (CK-2) Rel Index Troponin I (0.01-0.034) ng/mL C-Reactive Protein 0.9 (<1.0) mg/dL Total Protein (6.3-8.2) g/dL Albumin (3.5-5.0) g/dL Globulin (1.7-4.1) g/dL Albumin/Globulin Ratio (1.0-2.8) Lipase (23-300) U/L 06/27/22 Range/Units 23:25 WBC (4.5-11.0) X10^3/uL RBC (4.0-5.2) X10^6/uL Hgb (12.0-16.0) g/dL Hct (36-46) % MCV (80-100) fL MCH (26-34) PG MCHC (30-36) % RDW (11.6-14.8) % Plt Count (150-400) X10^3/uL Neut % (Auto) (50-75) % Lymph % (Auto) (25-40) % [place] % (Auto) (3-14) % Eos % (Auto) (2-4) % Baso % (Auto) (0-2) % Neut # (Auto) (1455-1792) /uL Lymph # (Auto) (5258-5429) /uL [place] # (Auto) (0-900) /uL Eos # (Auto) (0-450) /uL Baso # (Auto) (0-100) /uL ESR (0-20) MM/HR PT (10.1-12.7) SECONDS INR (0.9-1.3) APTT (26-36) SECONDS D-Dimer (<500) ng/ml Sodium (137-145) mmol/L Potassium (3.4-5.1) mmol/L Chloride (98-107) mmol/L Carbon Dioxide (22-32) mmol/L BUN (7-17) mg/dL Creatinine (0.52-1.04) mg/dL Estimated GFR (>60) mL/min BUN/Creatinine Ratio (6-22) Glucose (70-100) mg/dL Calcium (8.4-10.2) mg/dL Magnesium (1.6-2.3) mg/dL Total Bilirubin (0.2-1.3) mg/dL AST (14-36) IU/L ALT (<35) IU/L Alkaline Phosphatase (38-126) U/L Total Creatine Kinase (30-135) U/L CK-MB (CK-2) CK-MB (CK-2) Rel Index Troponin I < 0.012 (0.01-0.034) ng/mL C-Reactive Protein (<1.0) mg/dL Total Protein (6.3-8.2) g/dL Albumin (3.5-5.0) g/dL Globulin (1.7-4.1) g/dL Albumin/Globulin Ratio (1.0-2.8) Lipase (23-300) U/L Discharge Plan Departure Patient Disposition: Home Clinical Impression: Atypical chest pain Instructions: DI for Atypical Chest Pain Activity Restrictions/Additional Instructions: *You have been diagnosed with [atypical chest pain. As we discussed your history and physical exam as well as EKG, labs and imaging are reassuring and there is no evidence of heart attack, blood clot, pneumonia or other significant diagnosis that requires a specific or immediate intervention] *What to do: *Please continue to take your regular medications as directed. Also, as we discussed please consider the routine use of anti-inflammatories for the next few days [ ] New medication prescriptions sent to your pharmacy: [ ] [ ] New medication written as a paper prescription [ ] No new medications given *Please follow up with your primary care provider in 2-3 days, call for an appointment. Let them know you were seen in the Emergency Department and that we ask that you be seen in follow up. We will electronically transmit a record of today's note if your PCP is in our system *If you do not have a primary care provider please contact the [facility] Resource line at [phone]. They will ask some questions about your medical history and help get you set up with a doctor in the community. *Return to Emergency Department if you should have any new, worsening or concerning symptoms, such as [fever greater than 101 F, shaking chills, worsening pain, persistent vomiting or other bothersome symptoms] Prescriptions: No Action ergocalciferol (vitamin D2) 1,250 mcg (50,000 unit) capsule 1,250 mcg PO QWEEK Prenatabs Rx 29 mg iron- 1 mg Tablet 1 tab PO DAILY Qty: 30 0RF Stand Alone Forms: Patient Portal/API
[2022-06-27 20:13] LABS: Erythrocyte Sedimentation Rate 14 MM/HR (0-20)
[2022-06-27 20:15] LABS: C-Reactive Protein Quant 0.9 mg/dL (<1.0)
[2022-06-27 20:30] VITALS: PULSE 65; RESP 20; O2SAT 97
--- NOTE | 2022-06-27 20:30 | PC.NURSE ---
co dizziness and palpitations, pt aao x 3 gait steady
[2022-06-27 21:00] VITALS: PULSE 72; RESP 16; O2SAT 98
[2022-06-27 21:30] VITALS: PULSE 67; RESP 24; O2SAT 99
[2022-06-27 23:52] LABS: Troponin I < 0.012 ng/mL (0.01-0.034)
[2022-06-28 00:46] VITALS: BP 119/58; PULSE 65; RESP 16; O2SAT 99
== END 2022-06-28 00:52 | disposition home or self-care (01) ==
PROVIDERS: Emergency Provider Emergency Medicine; Family Provider Family Medicine
DX: R07.89 Other chest pain (principal)
CPT/HCPCS: 36415; 71045; 80053; 82550; 83690; 83735; 84484; 85025; 85379; 85610; 85651; 85730; 86140; 93005; 99283; 99284